=== PATIENT | female | born 1995 | race Two or more races ===

== ENCOUNTER 2020-10-23 11:20 | Emergency (ER) | payer OTHER, SELFPAY ==
[2020-10-23] VITALS (12 sets, daily range): BP systolic 105–111; BP diastolic 62–69; PULSE 60–78; RESP 13–19; TEMP 36.7; O2SAT 100
--- NOTE | ~2020-10-23 | XR_ITS ---
EXAMINATION: XR chest 2V DATE: 10/23/2020 12:14 INDICATION: Shortness of breath TECHNIQUE: Frontal and lateral views of the chest are obtained COMPARISON: None available FINDINGS: The lungs are free of acute opacities. There is no pleural effusion or pneumothorax. The ca rdiomediastinal silhouette is normal. The visualized bones and soft tissues are unremarkable. IMPRESSION: 1. No acute cardiopulmonary abnormality. Reviewed, dictated and finalized at location B.
--- NOTE | 2020-10-23 11:24 | ECG_ITS ---
Measurements Intervals [place] Rate: 68 P: 78 FL: 123 QRS: 86 QRSD: 92 T: 57 QT: 382 QTc: 408 Interpretive Statements SINUS RHYTHM WITH SINUS ARRHYTHMIA POSSIBLE LEFT ATRIAL ENLARGEMENT BORDERLINE ECG Electronically Signed On 10-23-2020 11:45:42 CDT by Milton Su D.O.
[2020-10-23 11:40] LABS: Basophils Percent Auto 0.3 % (0.2-1.2); Eosinophils Percent Auto 0.1 % (0-4.4); Hematocrit 34.7 % (37.0-47.0); Hemoglobin 11.7 g/dL (12.0-15.0); Immature Granulocyte Absolute 0.05 K/mm3 (0.00-0.031); Immature Granulocyte Percent A 0.5 % (0-0.5); Lymphocytes Absolute Auto 1.32 K/mm3 (0.9-3.2); Lymphocytes Percent Auto 12.3 % (18.3-44.2); Mean Corpuscular HGB Conc 33.7 g/dl (32-36); Mean Corpuscular Hemoglobin 29.8 pg (26-34); Mean Corpuscular Volume 88.3 fl (80-100); Mean Platelet Volume 9.3 fl (7.4-10.4); Monocytes Absolute Auto 0.3 K/mm3 (0.1-0.6); Monocytes Percent Auto 2.7 % (2.6-8.5); Neutrophils Percent Auto 84.1 % (45.5-73.1); Platelet Count Result 309 k/mm3 (150-375); Red Blood Count 3.93 M/mm3 (4.2-5.4); Red Cell Distribution Width 13.2 % (11.5-14.5); White Blood Count 10.7 K/mm3 (4.5-10.0)
[2020-10-23 11:49] LABS: Anion Gap 11 mmol/L (8-16); Blood Urea Nitrogen 6 mg/dL (7-17); Calcium 9.5 mg/dL (8.4-10.2); Carbon Dioxide 22 mmol/L (22-30); Chloride 101 mmol/L (98-107); Estimated CRCL calculation 130 ml/min; Estimated Glomerular Filt Rate > 60; Glucose 98 mg/dL (65-110); Potassium 3.7 mmol/L (3.4-5.0); Sodium 134 mmol/L (137-145)
--- NOTE | 2020-10-23 13:55 | ED.SOB ---
HPI - SOB/Dyspnea General Chief Complaint: Shortness of Breath/Dyspnea Stated Complaint: sob, 12 weeks Time Seen by Provider: 10/23/20 12:33 History of Present Illness HPI Narrative: Patient left without being seen by this provider. Related Data Home Medications Medication Instructions Recorded Confirmed PNV cmb#95-ferrous fumarate-FA 1 tablet PO DAILY 03/17/19 03/17/19 [] Allergies Allergy/AdvReac Type Severity Reaction Status Date / Time No Known Allergies Allergy Verified 03/17/19 13:41 PMFSH Family History Family History Mother Aorta aneurysm Hypoglycemia Social History Social History (Updated 03/25/19 @ 04:10 by Reinaldo Vickers, RN) Substance use: current Substance use type: marijuana Last use: 03/17/19 Spiritual care concerns: No Course Vital Signs Vital signs: Vital Signs Temperature 36.7 C 10/23/20 11:31 Pulse Rate 76 10/23/20 11:31 Respiratory Rate 18 10/23/20 11:31 Blood Pressure 105/69 10/23/20 11:31 Pulse Oximetry 100 10/23/20 11:31 Temperature 36.7 C 10/23/20 11:31 Pulse Rate 74 10/23/20 13:30 Respiratory Rate 17 10/23/20 13:30 Blood Pressure 110/62 10/23/20 12:00 Pulse Oximetry 100 10/23/20 12:45 MDM - SOB/Dyspnea Lab Data Result diagrams: 10/23/20 11:35 10/23/20 11:35 Labs: Lab Results 10/23/20 10/23/20 Range/Units 11:35 11:35 WBC 10.7 H (4.5-10.0) K/mm3 RBC 3.93 L (4.2-5.4) M/mm3 Hgb 11.7 L (12.0-15.0) g/dL Hct 34.7 L (37.0-47.0) % MCV 88.3 (80-100) fl MCH 29.8 (26-34) pg MCHC 33.7 (32-36) g/dl RDW 13.2 (11.5-14.5) % Plt Count 309 (150-375) k/mm3 MPV 9.3 (7.4-10.4) fl Immature Gran % (Auto) 0.5 (0-0.5) % Neut % (Auto) 84.1 H (45.5-73.1) % Lymph % (Auto) 12.3 L (18.3-44.2) % [place] % (Auto) 2.7 (2.6-8.5) % Eos % (Auto) 0.1 (0-4.4) % Baso % (Auto) 0.3 (0.2-1.2) % Lymph # (Auto) 1.32 (0.9-3.2) K/mm3 [place] # (Auto) 0.3 (0.1-0.6) K/mm3 Eos # (Auto) 0.0 (0-0.3) K/mm3 Baso # (Auto) 0.0 (0.0-0.1) K/mm3 Abs Immat Gran (auto) 0.05 H (0.00-0.031) K/mm3 Absolute Neuts (auto) 9.0 H (1.3-6.7) K/mm3 Absolute Nucleated RBC 0.0 (0.0-0.012) K/mm3 Nucleated RBC % 0.0 (0.0-0.2) % Sodium 134 L (137-145) mmol/L Potassium 3.7 (3.4-5.0) mmol/L Chloride 101 (98-107) mmol/L Carbon Dioxide 22 (22-30) mmol/L Anion Gap 11 (8-16) mmol/L BUN 6 L (7-17) mg/dL Creatinine 0.40 L (0.7-1.0) mg/dL Estim Creat Clear Calc 130 ml/min Estimated GFR > 60 (59 - ) Glucose 98 (65-110) mg/dL Calcium 9.5 (8.4-10.2) mg/dL Discharge Plan Discharge Patient Disposition: Left Without Being Sn Triaged Prescriptions: No Action PNV cmb#95-ferrous fumarate-FA [] 28 mg iron- 800 mcg Tablet 1 tablet PO DAILY RF: 0 Follow-up/Referrals: Antionette Tobias MD [Primary Care Provider] -
== END 2020-10-23 13:48 | disposition left against medical advice (07) ==
PROVIDERS: Emergency Medicine; Emergency Provider Nurse Practitioner; PCP Obstetrics & Gynecology
DX: Z53.21 Procedure and treatment not carried out due to patient leaving prior to being seen by health care provider (principal); R06.02 Shortness of breath
CPT/HCPCS: 36415; 71046; 80048; 85025; 93005; 99199

== ENCOUNTER 2021-02-09 09:51 | Outpatient (RCR) | payer OTHER, SELFPAY ==
[2021-02-09 11:24] LABS: Hematocrit 32.5 % (37.0-47.0); Hemoglobin 10.6 g/dL (12.0-15.0)
[2021-02-09 11:43] LABS: Glucose 1 Hour PP 50gm Dose 99 mg/dL
[2021-02-09 12:24] LABS: HIV 1/2 Ab P24 Ag Result Negative (Negative)
[2021-02-12 09:39] LABS: Rapid Plasma Reagin Non-Reactive (NonReactive)
[2021-02-12] MEDS: RHO(D) IMMUNE GLOBULIN 300 MCG/2 ML SYRINGE IM (15:28)
== END 2021-05-10 23:59 | disposition home or self-care (01) ==
LOC: ANHLAB 09:51
PROVIDERS: PCP Obstetrics & Gynecology; Visit Provider Obstetrics & Gynecology
DX: Z11.4 Encounter for screening for human immunodeficiency virus [HIV] (principal); Z29.13 Encounter for prophylactic Rho(D) immune globulin; O36.0130 Maternal care for anti-D [Rh] antibodies, third trimester, not applicable or unspecified; Z3A.00 Weeks of gestation of pregnancy not specified
CPT/HCPCS: 36415; 82947; 85014; 85018; 85461; 86592; 86703; 90384; 96372; G0432; J2790

== ENCOUNTER 2021-02-25 16:38 | Observation (INO) | payer OTHER, SELFPAY ==
[2021-02-25] VITALS (15 sets, daily range): BP systolic 98–126; BP diastolic 54–72; PULSE 78–107; TEMP 37.3; O2SAT 97–100; BMI 20.2
[2021-02-25] MEDS: ONDANSETRON INJ 4 MG/2 ML VIAL IV PUSH ×2 (17:00→22:40)
[2021-02-25] MEDS: DEXTROSE 5%/LACTATED RINGERS 1,000 ML 500 ML IV CONT ×2 (17:00→18:54)
[2021-02-25] MEDS: FAMOTIDINE 20 MG/2 ML VIAL IV PUSH (17:31)
[2021-02-25 17:38] LABS: Basophils Percent Auto 0.2 % (0.2-1.2); Hematocrit 31.8 % (37.0-47.0); Hemoglobin 10.8 g/dL (12.0-15.0); Immature Granulocyte Absolute 0.18 K/mm3 (0.00-0.031); Immature Granulocyte Percent A 1.1 % (0-0.5); Lymphocytes Absolute Auto 1.46 K/mm3 (0.9-3.2); Mean Corpuscular Volume 91.4 fl (80-100); Mean Platelet Volume 9.9 fl (7.4-10.4); Monocytes Absolute Auto 0.3 K/mm3 (0.1-0.6); Monocytes Percent Auto 1.8 % (2.6-8.5); Neutrophils Absolute Auto 14.3 K/mm3 (1.3-6.7); Neutrophils Percent Auto 87.9 % (45.5-73.1); Platelet Count Result 295 k/mm3 (150-375); Red Blood Count 3.48 M/mm3 (4.2-5.4); Red Cell Distribution Width 12.8 % (11.5-14.5); White Blood Count 16.3 K/mm3 (4.5-10.0)
[2021-02-25 17:50] LABS: Alanine Aminotransferase 15 U/L (4-35); Albumin Level 4.5 g/dL (3.5-5.1); Alkaline Phosphatase 111 U/L (38-126); Anion Gap 11 mmol/L (8-16); Aspartate Amino Transferase 22 U/L (14-36); Bilirubin,Total 0.4 mg/dL (0.2-1.3); Blood Urea Nitrogen 12 mg/dL (7-17); Calcium 9.4 mg/dL (8.4-10.2); Carbon Dioxide 21 mmol/L (22-30); Chloride 103 mmol/L (98-107); Estimated CRCL calculation 200 ml/min; Estimated Glomerular Filt Rate > 60; Glucose 115 mg/dL (65-110); Potassium 3.4 mmol/L (3.4-5.0); Sodium 135 mmol/L (137-145)
[2021-02-25 18:21] LABS: EDCOVIDSCREEN Negative (Negative)
[2021-02-25 19:23] LABS: Add Urine Microscopic? YES; Appearance Urine Cloudy (Clear); Bacteria Urine Trace /hpf; Bilirubin Urine Negative (Negative); Color Urine Yellow (Yellow); Glucose Urine UA 3+ mg/dL (Negative); Ketones Urine 2+ mg/dL (Negative); Leukocyte Esterase Ur Negative LEU/UL (Negative); Mucus Urine Few /lpf; Nitrate Urine Negative (Negative); Protein Urine 2+ mg/dL (Negative); Squamous Epithelial Cell Urine Many /hpf (Few); Urobilinogen Urine Negative mg/dL (<2.0)
[2021-02-25 19:24] LABS: Blood Urine Negative (Negative); Specific Grav Ur 1.035 (1.001-1.035)
[2021-02-25] MEDS: PROMETHAZINE HCL 25 MG/ML AMPUL (19:35)
--- NOTE | 2021-02-25 22:45 | PC.NURSE ---
pt states she feels much better and would like to go home. Called Dr. Tobias and okay to discharge with zofran Rx.
--- NOTE | 2021-03-15 21:17 | PM.OBTRLD ---
OB - Triage/Final Diagnosis Visit Information Comments/Additional reasons for admission: I have assessed the risk for this patient, Lauren Carlin, and determined that she would benefit from observation care. Evaluation Laboratory results: Laboratory Tests 02/25/21 02/25/21 02/25/21 17:27 17:27 17:57 WBC 16.3 H RBC 3.48 L Hgb 10.8 L Hct 31.8 L MCV 91.4 MCH 31.0 MCHC 34.0 RDW 12.8 Plt Count 295 MPV 9.9 Immature Gran % (Auto) 1.1 H Neut % (Auto) 87.9 H Lymph % (Auto) 9.0 L [place] % (Auto) 1.8 L Eos % (Auto) 0.0 Baso % (Auto) 0.2 Lymph # (Auto) 1.46 [place] # (Auto) 0.3 Eos # (Auto) 0.0 Baso # (Auto) 0.0 Abs Immat Gran (auto) 0.18 H Absolute Neuts (auto) 14.3 H Absolute Nucleated RBC 0.0 Nucleated RBC % 0.0 Sodium 135 L Potassium 3.4 Chloride 103 Carbon Dioxide 21 L Anion Gap 11 BUN 12 D Creatinine 0.30 L Estim Creat Clear Calc 200 Estimated GFR > 60 Glucose 115 H Calcium 9.4 Total Bilirubin 0.4 AST 22 ALT 15 Alkaline Phosphatase 111 Total Protein 8.0 Albumin 4.5 Urine Color Urine Appearance Urine pH Ur Specific [place] Urine Protein Urine Glucose (UA) Urine Ketones Ur Blood (Man) Urine Nitrate Urine Bilirubin Urine Urobilinogen Leukocyte Esterase Rfl Urine RBC Urine WBC Ur Squamous Epith Cells Urine Bacteria Urine Mucus SARS-CoV-2 IgG/IgM Ag?Rapid Negative 02/25/21 19:13 WBC RBC Hgb Hct MCV MCH MCHC RDW Plt Count MPV Immature Gran % (Auto) Neut % (Auto) Lymph % (Auto) [place] % (Auto) Eos % (Auto) Baso % (Auto) Lymph # (Auto) [place] # (Auto) Eos # (Auto) Baso # (Auto) Abs Immat Gran (auto) Absolute Neuts (auto) Absolute Nucleated RBC Nucleated RBC % Sodium Potassium Chloride Carbon Dioxide Anion Gap BUN Creatinine Estim Creat Clear Calc Estimated GFR Glucose Calcium Total Bilirubin AST ALT Alkaline Phosphatase Total Protein Albumin Urine Color Yellow Urine Appearance Cloudy H Urine pH 6.0 Ur Specific [place] 1.035 Urine Protein 2+ H Urine Glucose (UA) 3+ H Urine Ketones 2+ H Ur Blood (Man) Negative Urine Nitrate Negative Urine Bilirubin Negative Urine Urobilinogen Negative Leukocyte Esterase Rfl Negative Urine RBC 6-10 H Urine WBC 7-9 H Ur Squamous Epith Cells Many H Urine Bacteria Trace Urine Mucus Few H SARS-CoV-2 IgG/IgM Ag?Rapid Final Diagnosis (1) Nausea & vomiting: Code(s): R11.2 - Nausea with vomiting, unspecified Status: Acute (2) Abdominal pain affecting : Code(s): O26.899 - Other specified related conditions, unspecified trimester; R10.9 - Unspecified abdominal pain Status: Acute
== END 2021-02-25 23:00 | disposition home or self-care (01) ==
PROVIDERS: Admitting Provider Obstetrics & Gynecology; PCP Obstetrics & Gynecology; Visit Provider Obstetrics & Gynecology
DX: O21.2 Late vomiting of pregnancy (principal); O26.893 Other specified pregnancy related conditions, third trimester; R10.9 Unspecified abdominal pain; Z3A.30 30 weeks gestation of pregnancy
CPT/HCPCS: 36415; 80053; 81001; 85025; 87086; 87088; 87426; 96361; 96374; 96375; 96376; C9803; G0378; G0379; J2405; J2550; J7121

== ENCOUNTER 2021-02-27 06:37 | Observation (INO) | payer OTHER, SELFPAY ==
[2021-02-27] VITALS (14 sets, daily range): BP systolic 96; BP diastolic 54; PULSE 70–89; RESP 18; TEMP 36.7; O2SAT 98–100; BMI 20.2
--- NOTE | ~2021-02-27 | US_ITS ---
EXAMINATION: US abdomen limited EXAM DATE: 02/27/2021 09:22 INDICATION: Abd pain that radiates to back. TECHNIQUE: Multiple grayscale and Doppler images of the abdomen right upper quadrant were obtained (b y a technologist who performed the scan) and subsequently reviewed. Comparison is made to prior exami nation from 02/02/2019. FINDINGS: The pancreatic head and body are normal in appearance. The pancreatic tail is not visualized. The l iver has normal echogenicity and contour. There are no focal liver lesions identified. There is no evidence of intrahepatic biliary duct dilation. Portal venous flow was seen in the hepatopedal, nor mal direction and has normal Doppler waveform. No right-sided hydronephrosis. Common bile duct measures 4 mm, which is normal. The gallbladder wall is normal in thickness, with ex pected amount of distention. No sonographic evidence of pericholecystic fluid. There is no cholelit hiases. Technologist performing exam reports patient did not demonstrate sonographic Pollock's sign. Please note that this sign is less reliable in patients who have received pain medication. IMPRESSION: Unremarkable abdominal ultrasound exam. Reviewed, dictated and finalized at location A. EMENTATION ANALYST
--- NOTE | 2021-02-27 07:00 | OBADM ---
This patient, Lauren Carlin, admitted to the OB room OB Post 116 for observation. Patient/family oriented to hospital policies and general routines including ID bracelet, bed and alarms, visiting hours, pain management, procedures, bathroom and other care routines, personal items, smoking policy, room service/diet, and visiting hours. Patient/Family are encouraged to report perceived risks to care and to ask questions if they do not understand what they are told or what they should do.
[2021-02-27] MEDS: ONDANSETRON INJ 4 MG/2 ML VIAL IV PUSH (08:08)
--- NOTE | 2021-02-27 08:10 | PC.NURSE ---
Patient standing and rocking at bedside, requesting to get in shower while waiting for US.
[2021-02-27 08:22] LABS: Basophils Percent Auto 0.4 % (0.2-1.2); Eosinophils Absolute Auto 0.1 K/mm3 (0-0.3); Eosinophils Percent Auto 0.5 % (0-4.4); Hematocrit 28.4 % (37.0-47.0); Hemoglobin 9.7 g/dL (12.0-15.0); Immature Granulocyte Absolute 0.08 K/mm3 (0.00-0.031); Immature Granulocyte Percent A 0.7 % (0-0.5); Lymphocytes Absolute Auto 1.69 K/mm3 (0.9-3.2); Lymphocytes Percent Auto 15.6 % (18.3-44.2); Mean Corpuscular HGB Conc 34.2 g/dl (32-36); Mean Corpuscular Hemoglobin 31.2 pg (26-34); Mean Corpuscular Volume 91.3 fl (80-100); Mean Platelet Volume 9.6 fl (7.4-10.4); Monocytes Absolute Auto 0.4 K/mm3 (0.1-0.6); Monocytes Percent Auto 3.7 % (2.6-8.5); Neutrophils Absolute Auto 8.6 K/mm3 (1.3-6.7); Neutrophils Percent Auto 79.1 % (45.5-73.1); Platelet Count Result 243 k/mm3 (150-375); Red Blood Count 3.11 M/mm3 (4.2-5.4); Red Cell Distribution Width 12.7 % (11.5-14.5); White Blood Count 10.8 K/mm3 (4.5-10.0)
[2021-02-27] MEDS: fentaNYL CITRATE INJ (*CRX) 100 MCG/2 ML VIAL 50 MCG IV PUSH ×2 (08:45→13:41)
[2021-02-27 09:13] LABS: Alanine Aminotransferase 13 U/L (4-35); Albumin Level 3.7 g/dL (3.5-5.1); Alkaline Phosphatase 87 U/L (38-126); Amylase 59 U/L (30-110); Anion Gap 7 mmol/L (8-16); Aspartate Amino Transferase 21 U/L (14-36); Bilirubin,Total 0.2 mg/dL (0.2-1.3); Blood Urea Nitrogen 8 mg/dL (7-17); Calcium 9.1 mg/dL (8.4-10.2); Carbon Dioxide 23 mmol/L (22-30); Chloride 103 mmol/L (98-107); Estimated CRCL calculation 200 ml/min; Estimated Glomerular Filt Rate > 60; Glucose 88 mg/dL (65-110); Lipase 53 U/L (23-300); Potassium 3.4 mmol/L (3.4-5.0); Sodium 133 mmol/L (137-145); Uric Acid 2.2 mg/dL (2.5-7.5)
--- NOTE | 2021-02-27 10:09 | PC.NURSE ---
Dr Tobias informed of lab results and US report. Orders received.
[2021-02-27] MEDS: PROMETHAZINE HCL 25 MG/ML AMPUL 12.5 MG IV PUSH (10:25)
[2021-02-27] MEDS: fentaNYL CITRATE INJ (*CRX) 100 MCG/2 ML VIAL IV PUSH (10:25)
[2021-02-27 10:55] LABS: Amphetamine Screen Urine Negative (Negative); Barbiturate Screen Urine Negative (Negative); Benzodiazepines Screen Urine Negative (Negative); Cannabinoid Screen Urine Positive (Negative); Cocaine Screen Urine Negative (Negative); Methadone Screen Urine Negative (Negative); Opiate Screen Urine Negative (Negative); Phencyclidine Screen Urine Negative (Negative)
--- NOTE | 2021-02-27 11:54 | PC.NURSE ---
Patient states that her pain and nausea are gone. Patient has been sleeping off and on for the last half hour.
[2021-02-27] MEDS: FAMOTIDINE 20 MG/2 ML VIAL IV PUSH (13:41)
--- NOTE | 2021-02-27 15:28 | PC.NURSE ---
Discussed UDS with patient, also discussed her nausea and her marijuana use. Patient states that she uses at least a bowl a day.
--- NOTE | 2021-02-27 15:40 | PC.NURSE ---
Dr Tobias notified of patient wishing to leave. Dr Tobias also informed of MJ usage and frequency. Patient educated on MJ use.
--- NOTE | 2021-02-27 15:49 | PM.IMHP ---
H&P: HPI History of Present Illness Date/Time: 02/27/21 15:49 this patient is a 25-year-old multiparous female 30 weeks gestation who presents with epigastric pain and nausea vomiting. Patient has intractable vomiting and nausea. She has some epigastric pain that radiates to her back. She have no vaginal bleeding. She reports good movement. She denies any contractions. She denies any chest pain or shortness of breath. She denies any nausea, vomiting, fever, chills. Chief Complaint: nausea and vomitting Review of Systems Review of Systems: All systems reviewed & are unremarkable except as noted in HPI and below Constitutional: Constitutional: Denies chills, Denies fatigue, Denies fever(s) and Denies weakness Eyes: Eyes: Denies blurry vision, Denies change in vision, Denies loss of peripheral vision, Denies loss of vision, Denies other visual disturbances and Denies eye pain ENT: Denies vertigo, Denies dizziness, Denies hearing loss, Denies mouth pain, Denies nasal obstruction, Denies neck mass and Denies neck pain Cardiovascular: Cardiovascular: Denies chest pain, Denies diaphoresis, Denies syncope, Denies leg edema and Denies dyspnea Respiratory: Respiratory: Denies chest congestion, Denies cough, Denies hemoptysis, Denies dyspnea and Denies wheezing Gastrointestinal: Gastrointestinal: Denies abdominal pain, Denies constipation, Denies diarrhea, Denies nausea and Denies vomiting Genitourinary: Genitourinary: Denies hematuria, Denies change in libido, Denies nocturia, Denies genital lesions, Denies flank pain and Denies urinary urgency Musculoskeletal: Musculoskeletal: Denies abnormal gait, Denies back pain, Denies myalgias, Denies arthralgias, Denies joint swelling, Denies muscle weakness and Denies neck pain Integumentary/Breasts: Skin/Breast: Denies swelling, Denies breast pain, Denies breast mass, Denies dry skin, Denies nipple discharge, Denies unusual bruising and Denies jaundice Neurologic: Denies Neuro-related abnormal movements, Denies Abnormal speech present, Denies abnormal gait, Denies behavioral changes, Denies confusion, Denies vertigo, Denies dizziness, Denies syncope, Denies loss of vision, Denies memory loss, Denies convulsions and Denies weakness Psychiatric: Psychiatric: Denies abnormal sleep pattern, Denies behavioral changes, Denies change in libido, Denies confusion, Denies depression, Denies anhedonia and Denies memory loss Endocrine: Endocrine: Reports no additional endocrine complaints, Denies change in libido and Denies fatigue Hematologic/Lymphatic: Hematologic/Lymphatic: Reports no additional hematologic/lymphatic complaints Allergic/Immunologic: Allergic/Immunologic: Reports no additional allergic/immunologic complaints and Denies wheezing PMFSH Family History Family History Mother Aorta aneurysm Hypoglycemia Social History Social History (Updated 03/25/19 @ 04:10 by Reinaldo Vickers, RN) Substance use: current Substance use type: marijuana Last use: 03/17/19 Spiritual care concerns: No Meds Home Medications and Allergies Home Medications Medication Instructions Recorded Confirmed Type PNV cmb#95-ferrous fumarate-FA 1 tablet PO DAILY 03/17/19 02/25/21 History [] ondansetron 4 mg PO Q6H PRN #30 tablet 02/25/21 Rx Allergies Allergy/AdvReac Type Severity Reaction Status Date / Time No Known Allergies Allergy Verified 03/17/19 13:41 Vital Signs Vital Signs - 24 hr 02/27/21 06:49 02/27/21 06:51 02/27/21 06:54 Pulse Rate 85 Blood Pressure 96/54 L Pulse Oximetry 99 98 02/27/21 06:59 02/27/21 07:04 02/27/21 07:09 Pulse Rate Blood Pressure Pulse Oximetry 100 99 99 02/27/21 07:14 02/27/21 07:19 02/27/21 07:24 Pulse Rate Blood Pressure Pulse Oximetry 100 99 99 02/27/21 07:29 02/27/21 07:34 02/27/21 07:39 Pulse Rate Blood Pressure Pulse Oximetry 98 98
== END 2021-02-27 15:45 | disposition home or self-care (01) ==
PROVIDERS: Advanced Practice Midwife; Admitting Provider Obstetrics & Gynecology; Visit Provider Obstetrics & Gynecology
DX: O21.2 Late vomiting of pregnancy (principal); Z3A.30 30 weeks gestation of pregnancy
CPT/HCPCS: 36415; 76705; 80053; 80307; 82150; 83690; 84550; 85025; 96374; 96375; 96376; G0378; G0379; J2405; J2550; J3010

== ENCOUNTER 2021-04-22 08:33 | Outpatient (CLI) | payer OTHER, SELFPAY ==
[2021-04-22 09:14] VITALS: BP 113/61; PULSE 101
== END 2021-04-22 08:34 | disposition home or self-care (01) ==
LOC: ANHOBOP 08:36
PROVIDERS: Visit Provider Obstetrics & Gynecology
DX: O36.8910 Maternal care for other specified fetal problems, first trimester, not applicable or unspecified (principal); Z3A.00 Weeks of gestation of pregnancy not specified
CPT/HCPCS: 59025

== ENCOUNTER 2021-04-28 05:55 | Inpatient (IN) | payer OTHER, SELFPAY ==
[2021-04-28] VITALS (88 sets, daily range): BP systolic 90–150; BP diastolic 38–108; PULSE 55–103; RESP 16; TEMP 36.3–37.3; O2SAT 87–100; BMI 20.8
[2021-04-28 06:34] LABS: Basophils Absolute Auto 0.1 K/mm3 (0.0-0.1); Basophils Percent Auto 0.5 % (0.2-1.2); Eosinophils Absolute Auto 0.2 K/mm3 (0-0.3); Eosinophils Percent Auto 1.8 % (0-4.4); Hematocrit 30.3 % (37.0-47.0); Immature Granulocyte Absolute 0.06 K/mm3 (0.00-0.031); Immature Granulocyte Percent A 0.6 % (0-0.5); Lymphocytes Absolute Auto 2.38 K/mm3 (0.9-3.2); Lymphocytes Percent Auto 24.2 % (18.3-44.2); Mean Corpuscular Hemoglobin 30.2 pg (26-34); Mean Corpuscular Volume 91.5 fl (80-100); Mean Platelet Volume 9.7 fl (7.4-10.4); Monocytes Absolute Auto 0.4 K/mm3 (0.1-0.6); Monocytes Percent Auto 4.2 % (2.6-8.5); Neutrophils Absolute Auto 6.8 K/mm3 (1.3-6.7); Neutrophils Percent Auto 68.7 % (45.5-73.1); Platelet Count Result 335 k/mm3 (150-375); Red Blood Count 3.31 M/mm3 (4.2-5.4); Red Cell Distribution Width 14.1 % (11.5-14.5); White Blood Count 9.8 K/mm3 (4.5-10.0)
[2021-04-28] MEDS: LACTATED RINGERS 1,000 ML 125 ML IV CONT (06:40)
[2021-04-28] MEDS: OXYTOCIN 30 UNITS/NS 500 ML 30 UNITS/500 ML BAG IV CONT (06:41)
--- NOTE | 2021-04-28 06:55 | P.PNAN_ITS ---
Anes - Eval Pre Procedure Procedure: labor epidural Date/Time: 04/28/21 06:55 Surgeon: danelle Preop Diagnosis: pain during labor Pre Op Diagnosis: IOL Patient Data Age: 25 Gender: F Height: Weight: Last Vital Signs Temp 37.3 C 04/28/21 06:40 Pulse 103 H 04/28/21 06:45 BP 107/61 04/28/21 06:45 Allergies Allergy/AdvReac Type Severity Reaction Status Date / Time No Known Allergies Allergy Verified 03/17/19 13:41 Home Medications Medication Instructions Recorded Confirmed Type PNV cmb#95-ferrous fumarate-FA 1 tablet PO DAILY 03/17/19 04/28/21 History [] ondansetron 4 mg PO Q6H PRN #30 tablet 02/25/21 04/28/21 Rx Laboratory Tests 04/28/21 04/28/21 06:23 06:23 WBC 9.8 K/mm3 K/mm3 (4.5-10.0) RBC 3.31 M/mm3 L M/mm3 (4.2-5.4) Hgb 10.0 g/dL L g/dL (12.0-15.0) Hct 30.3 % L % (37.0-47.0) MCV 91.5 fl fl (80-100) MCH 30.2 pg pg (26-34) MCHC 33.0 g/dl g/dl (32-36) RDW 14.1 % % (11.5-14.5) Plt Count 335 k/mm3 k/mm3 (150-375) MPV 9.7 fl fl (7.4-10.4) Immature Gran % (Auto) 0.6 % H % (0-0.5) Neut % (Auto) 68.7 % % (45.5-73.1) Lymph % (Auto) 24.2 % % (18.3-44.2) [place] % (Auto) 4.2 % % (2.6-8.5) Eos % (Auto) 1.8 % % (0-4.4) Baso % (Auto) 0.5 % % (0.2-1.2) Lymph # (Auto) 2.38 K/mm3 K/mm3 (0.9-3.2) [place] # (Auto) 0.4 K/mm3 K/mm3 (0.1-0.6) Eos # (Auto) 0.2 K/mm3 K/mm3 (0-0.3) Baso # (Auto) 0.1 K/mm3 K/mm3 (0.0-0.1) Abs Immat Gran (auto) 0.06 K/mm3 H K/mm3 (0.00-0.031) Absolute Neuts (auto) 6.8 K/mm3 H K/mm3 (1.3-6.7) Absolute Nucleated RBC 0.0 K/mm3 K/mm3 (0.0-0.012) Nucleated RBC % 0.0 % % (0.0-0.2) RPR Pending Patient hx anesthesia problems: none Family hx anesthesia problems: none Results Review: All pre-operative results and documents have been reviewed as part of the pre-operative evaluation. [facility] Past Medical History Medical History (Updated 04/28/21 @ 06:56 by Brii Norwood CRNA) Intrauterine Family History Family History Mother Aorta aneurysm Hypoglycemia Social History Social History (Updated 03/25/19 @ 04:10 by Reinaldo Vickers RN) Substance use: current Substance use type: marijuana Last use: LAST TIME -2MONTHS AGO-02/25 Spiritual care concerns: No Exam Day of Procedure 04/28/21 06:55
--- NOTE | 2021-04-28 07:17 | LDADM ---
This patient, Lauren Carlin, was admitted to Labor/Delivery/Recovery 106 on 04/28/21 at 05:55. Plans for labor, pain management and were discussed with patient. Patient/family oriented to hospital policies and general routines including ID bracelet, bed and alarms, visiting hours, pain management, procedures, bathroom and other care routines, personal items, smoking policy, room service/diet and guest tray routines, security routines, and visiting hours. Patient/Family are encouraged to report perceived risks to care and to ask questions if they do not understand what they are told or what they should do. See OBIX for further documentation.
[2021-04-28 07:30] LABS: Amphetamine Screen Urine Negative (Negative); Barbiturate Screen Urine Negative (Negative); Benzodiazepines Screen Urine Negative (Negative); Cannabinoid Screen Urine Positive (Negative); Cocaine Screen Urine Negative (Negative); Methadone Screen Urine Negative (Negative); Opiate Screen Urine Negative (Negative); Phencyclidine Screen Urine Negative (Negative)
--- NOTE | 2021-04-28 07:57 | WPDOBADMIT ---
Obstetrics - Admit Note Admission Note: record reviewed. No pertinent additions to the history and/or any subsequent changes in the physical findings that are not consistent with the expected course of the were found. elective induction of labor, SVE /-2 AROM moderate amount of meconium stained fluid, anticipate vaginal delivery Additions to the history and/or subsequent changes in the physical findings follow. None.
[2021-04-28] MEDS: ONDANSETRON INJ 4 MG/2 ML VIAL IV PUSH (09:10)
[2021-04-28] MEDS: fentaNYL CITRATE INJ (*CRX) 100 MCG/2 ML VIAL IV PUSH ×4 (09:11→12:22)
[2021-04-28] MEDS: LACTATED RINGERS 1,000 ML 999 ML IV CONT ×2 (11:55→12:55)
--- NOTE | 2021-04-28 15:26 | PM.OBPRVD ---
OB - Delivery Note Procedure Delivery date: 04/28/21 Procedure: vaginal delivery events: Meconium Stained Fluid Induction method: AROM and per pitocin protocol Delivery monitor: external FHT and external uterine Route of delivery: Laceration Description: None Specimen: Yes Quantitative Blood Loss (ml): 110 Anesthesia type: Epidural Disposition: floor [place] Baby Date of : 04/28/21 Time of : 15:11 Weeks of gestation at delivery: 39 Infant gender: Female Weight (pounds): 5 Weight (ounces): 13 presentation: vertex position: Left Occiput Anterior Placenta delivery description: Spontaneous cord vessel description: 3 Vessels and Delayed Cord Clamping score one minute: 8 score five minutes: 9 Narrative: mother and baby skin to skin in stable condition
[2021-04-28] MEDS: OXYTOCIN 30 UNITS/NS 500 ML 30 UNITS/500 ML BAG 125 UNITS IV CONT (15:49)
[2021-04-28] MEDS: IBUPROFEN 600 MG TABLET (17:15)
--- NOTE | 2021-04-28 17:59 | PC.NURSE ---
Patient transferred to post room #287 per wheelchair from labor and delivery. Support person present. Oriented to unit, room, information board, rooming in, admission packet and security measures. Patient verbalizes understanding.
[2021-04-29] MEDS: IBUPROFEN 600 MG TABLET PO ×2 (02:17→08:10)
[2021-04-29 04:50] VITALS: BP 110/69; PULSE 76; RESP 16; TEMP 36.3; O2SAT 99
[2021-04-29] MEDS: ACETAMINOPHEN 325 MG TABLET 650 MG PO ×2 (04:51→13:49)
[2021-04-29 05:39] LABS: Hematocrit 26.3 % (37.0-47.0); Hemoglobin 8.8 g/dL (12.0-15.0)
[2021-04-29] MEDS: ONDANSETRON INJ 4 MG/2 ML VIAL IV PUSH ×2 (08:10→13:49)
[2021-04-29 08:15] VITALS: BP 99/59; PULSE 81; RESP 18; TEMP 36.2
--- NOTE | 2021-04-29 11:03 | PM.OBPNVD ---
OB - PN: Subj Subjective Date/time seen: 04/29/21 11:03 Patient comments: no complaints and pain well controlled baby status: doing well OB - PN: Obj Data Labs CBC & Chem 7: 04/29/21 04:59 Labs: Laboratory Results - last 24 hr 04/29/21 04:59 Hgb 8.8 L Hct 26.3 L OB - PN A/P Plan day: 1 Plan: routine care and discharge home Time Spent With Patient Time: Total time spent is greater than 50% in coordination of care (as documented) at patient's floor/unit and/or counseling patient: Review of Systems Review of Systems: All systems reviewed & are unremarkable except as noted in HPI and below Exam Const: General: cooperative, healthy appearing and comfortable
--- NOTE | 2021-04-29 11:11 | PM.OBDSVD ---
DS: Admitting Diagnosis Discharge Date 04/29/21 Admitting Diagnosis IOL OB - DS: Summary OB Procedures : None OB Procedures Intrapartum: Spontaneous Vag Delivery OB Procedures: : None Time Spent with Patient Time attestation: Total time spent providing and/or coordinating discharge services: DS: Data Data Completed and Pending Labs on day of discharge: Labs from last 24 hours 04/29/21 04:59 Hgb 8.8 L Hct 26.3 L Discharge Plan Discharge Attending physician on discharge: Antionette Tobias Discharging Clinician: Suellen Gibbs Patient Disposition: Home, Self-Care Activity: pelvic rest Diet: regular Patient Instructions: Antibiotic Form Stand Alone Forms: General Discharge Information Follow-up/Referrals: Suellen Gibbs, JAMIM [Certified Nurse Tester [place] [employer]] - Discharge Medications: New ibuprofen 600 mg Tablet 600 mg PO Q6H PRN (Reason: Cramping) Qty: 30 RF: 0 polysaccharide iron complex 150 mg iron Capsule 150 mg PO BIDWM Qty: 60 RF: 0 Continued PNV cmb#95-ferrous fumarate-FA [] 28 mg iron- 800 mcg Tablet 1 tablet PO DAILY RF: 0 ondansetron 4 mg tablet,disintegrating 4 mg PO Q6H PRN (Reason: Nausea) Qty: 30 RF: 0 Date of admission: 04/28/21 05:55 Primary Care Provider: PHYSICIAN,TRAUMA DOCTOR Admitting Provider: Antionette Tobias Attending physician on admission: Antionette Tobias Condition: Stable
--- NOTE | 2021-04-29 11:13 | PM.OBDSVD ---
DS: Admitting Diagnosis Discharge Date 04/29/21 Admitting Diagnosis iol OB - DS: Summary OB Procedures : None OB Procedures Intrapartum: Spontaneous Vag Delivery OB Procedures: : None Time Spent with Patient Time attestation: Total time spent providing and/or coordinating discharge services: DS: Data Data Completed and Pending Labs on day of discharge: Labs from last 24 hours 04/29/21 04:59 Hgb 8.8 L Hct 26.3 L Discharge Plan Discharge Attending physician on discharge: Antionette Tobias Discharging Clinician: Suellen Gibbs Patient Disposition: Home, Self-Care Activity: pelvic rest Diet: regular Patient Instructions: Antibiotic Form Stand Alone Forms: General Discharge Information Follow-up/Referrals: Suellen Gibbs, JAMIM [Certified Nurse Fishing Vessel Mate] - Discharge Medications: New ibuprofen 600 mg Tablet 600 mg PO Q6H PRN (Reason: Cramping) Qty: 30 RF: 0 polysaccharide iron complex 150 mg iron Capsule 150 mg PO BIDWM Qty: 60 RF: 0 Continued PNV cmb#95-ferrous fumarate-FA [] 28 mg iron- 800 mcg Tablet 1 tablet PO DAILY RF: 0 ondansetron 4 mg tablet,disintegrating 4 mg PO Q6H PRN (Reason: Nausea) Qty: 30 RF: 0 Date of admission: 04/28/21 05:55 Primary Care Provider: PHYSICIAN,CERTIFIED DRUG COUNSELOR Admitting Provider: Antionette Tobias Attending physician on admission: Antionette Tobias Condition: Stable
[2021-04-29 12:50] VITALS: BP 93/48; PULSE 97; RESP 18; TEMP 36.8
[2021-04-29] MEDS: TETANUS,DIPHTHERIA,AC PERTUSSIS ADULT (0.5 ML) BOOSTRIX IM (12:57)
--- NOTE | 2021-04-29 14:41 | WPDANLDPN2 ---
Anes-Prog Note L&D Date/Time: 04/29/21 14:41 Comfortable throughout: labor and delivery Neuraxial method: epidural Epidural/Spinal procedure site: clean & non-tender Neuro status: Neuro function grossly intact. Cardiovascular status: normal Respiratory status: normal Airway patency: baseline Mental status: baseline Post-Op hydration status: normal Vital Signs: Last Vital Signs Temp 98.2 F 04/29/21 12:50 Pulse 97 04/29/21 12:50 Resp 18 04/29/21 12:50 BP 93/48 L 04/29/21 12:50 Pulse Ox 99 04/29/21 04:50 Pain score (VAS): 0 I/O: Intake & Output 04/28/21 04/29/21 04/29/21 23:59 07:59 15:59 Output Total 1010 Balance -1010 Post-procedural complaints: none Patient feedback: Patient satisfied with anesthetic care.
[2021-04-29] MEDS: RHO(D) IMMUNE GLOBULIN 300 MCG/2 ML SYRINGE IM (15:07)
[2021-04-30 10:55] LABS: Rapid Plasma Reagin Non-Reactive (NonReactive)
[2021-04-30 11:54] VITALS: BP 92/51; PULSE 81; RESP 16; TEMP 37.1; O2SAT 100
== END 2021-04-29 17:52 | disposition home or self-care (01) | DRG 560 ==
LOC: ANHLDR 05:58 → ANHOB2 18:03
PROVIDERS: Advanced Practice Midwife; Admitting Provider Obstetrics & Gynecology; Visit Provider Obstetrics & Gynecology
DX: O77.0 Labor and delivery complicated by meconium in amniotic fluid (principal); O69.81X0 Labor and delivery complicated by cord around neck, without compression, not applicable or unspecified; Z3A.39 39 weeks gestation of pregnancy; Z37.0 Single live birth
CPT/HCPCS: 36415; 80307; 85014; 85018; 85025; 85461; 86592; 86850; 86900; 86901; 88307; 90384; 90715; A9270; J2405; J2590; J2790; J2795; J3010; J7120

== ENCOUNTER 2024-09-30 16:35 | Emergency (ER) | payer MEDICAID, SELFPAY ==
--- NOTE | ~2024-09-30 | XR_ITS ---
HISTORY: pain, fall COMPARISON: None TECHNIQUE: 4 views of the left knee were performed FINDINGS: No acute or subacute fracture. Medial tibiofemoral joint space narrowing is identified. No suprapatellar joint effusion is identified. The infrapatellar joint space is clear. 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 Reviewed, dictated and finalized at location A.
[2024-09-30 16:45] VITALS: BP 101/64; PULSE 80; RESP 20; TEMP 37.2; O2SAT 100
--- NOTE | 2024-09-30 17:54 | ED_ITS ---
HPI - Fall General Chief Complaint: Fall Stated Complaint: FALL Source: patient Mode of arrival: ambulatory Limitations: no limitations History of Present Illness HPI Narrative: 29-year-old female presented for complaint of left knee pain. States 5 days ago she tripped and landed on the left knee. She took ibuprofen and the pain was improved. However today she took a long walk, and after sitting for while she felt the knee was stiff. Pain is worse to the inner aspect of the knee. She denies significant swelling, numbness, tingling, or weakness. Has not taken any additional medicine for pain after the first day. Related Data Home Medications ?Medication ?Instructions ?Recorded ?Confirmed ?Last Taken ?Type vit no.95-ferrous 1 tablet PO DAILY 03/17/19 04/28/21 04/27/21 History fumarate 28 mg-folic acid 800 mcg tablet () sertraline 50 mg tablet mg 09/30/24 Unknown History Allergies Allergy/AdvReac Type Severity Reaction Status Date / Time No Known Allergies Allergy Verified 09/30/24 17:09 Review of Systems Review of Systems: CONSTITUTIONAL: Denies body aches, fever, chills EYES: Denies visual changes ENT: Denies rhinorrhea, congestion CARDIOVASCULAR: Denies chest pain, palpitations, or edema. RESPIRATORY: Denies cough or dyspnea. SKIN: Denies rash, itching, or wounds. MUSCULOSKELETAL: reports left knee pain NEUROLOGIC: Denies headache, numbness, tingling, or weakness. All systems reviewed & are unremarkable except as noted in HPI and below PMFSH Past Medical History Medical History (Updated 09/30/24 @ 18:14 by Peggy Zazueta APRN) Intrauterine Family History Family History Mother Aorta aneurysm Hypoglycemia Social History Social History (Updated 03/25/19 @ 04:10 by Reinaldo Vickers RN) Smoking status: Never smoker Second hand tobacco smoke exposure: No Substance use: current Substance use type: marijuana Last use: LAST TIME -2MONTHS AGO-02/25 Spiritual care concerns: No Comments At time of signature, I have reviewed and agree with nursing past medical, surgical, social and family history unless otherwise noted. Please see nursing chart for further information. There is no relevant family history pertinent to the presenting complaint Exam Narrative: GENERAL: Well-appearing CHEST: Speaks in full sentences. No respiratory distress. HEART: Regular rate and rhythm. Normal and equal peripheral pulses. EXTREMITIES: Patient is able to bear weight and ambulate without pain to the knee. No bruising, erythema or warmth to the left knee. No obvious asymmetry or deformity when compared to the other knee. Patient is able to tolerate full flexion, extension, internal rotation; endorses medial knee pain with external rotation and with palpation. No tenderness to palpation of the patella, no effusion or ballottement. No tenderness over the infrapatellar tendon. No tenderness over the proximal fibular head. No quadriceps tenderness. Distal motor and neurovascular status intact. Capillary refill less than 3 seconds. SKIN: Warm, dry NEURO: Alert and oriented x3. PSYCH: Normal mood and affect Course Course Emergency Course: Patient is aware of diagnosis, understands and agrees to treatment plan. Anticipatory guidance given. Patient agrees to follow-up as directed and is aware of reasons to seek care at the emergency department. Portions of this record may have been created with voice recognition software Level of Care: Express Care Visit Vital Signs Vital signs: Vital Signs Temperature 98.9 F 09/30/24 16:45 Pulse Rate 80 09/30/24 16:45 Respiratory Rate 20 09/30/24 16:45 Blood Pressure 101/64 09/30/24 16:45 Pulse Oximetry 100 09/30/24 16:45 Oxygen Delivery Room Air 09/30/24 16:45 Temperature 98.9 F 09/30/24 16:45 Pulse Rate 80 09/30/24 16:45 Respiratory Rate 20 09/30/24 16:45 Blood Pressure 101/64 09/30/24 16:45 Pulse Oximetry 100 09/30/24 16:45 Oxygen Delivery Room Air 09/30/24 16:45 Reviewed MDM - Fall MDM Narrative Medical decision making narrative: Discussed physical exam findings and xray. CINTHIA applied. Advised supportive measures and signs/symptoms to go to the ER. Pt is appropriate for outpt treatment and f/u. Differential Diagnosis Differential diagnosis: Likely other (osteoarthritis, patella dislocation, patellar tendonitis, tendon rupture, gout, bakers cyst, septic bursitis, dvt, tibial plateau fracture) Imaging Data Radiologist's impression: Patient: Lauren Carlin : 1995 MR#: [id number] Age: 29 Acct:[id number] Loc: [facility] ADM Date: 09/30/24Attending Dr: HISTORY: pain, fall COMPARISON: None TECHNIQUE: 4 views of the left knee were performed FINDINGS: No acute or subacute fracture. Medial tibiofemoral joint space narrowing is identified. No suprapatellar joint effusion is identified. The infrapatellar joint space is clear. 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 Discharge Plan Discharge Clinical Impression: Acute knee pain Patient Disposition: Home Condition: Stable Instructions: Knee Pain (ED) Additional Instructions: Rest and elevate the left leg; bear weight as tolerated Apply ice 15-20 minute intervals several times a day Keep it wrapped with CINTHIA or use a soft knee splint Motrin 600mg every 8 hours, alternate with Tylenol 1000mg every 8 hours as needed Follow up with your primary care provider as needed Go to the ER for any worsening symptoms or concerns Patient Language: Tajik Prescriptions: No Action sertraline 50 mg tablet PNV cmb#95-ferrous fumarate-FA [] 28 mg iron- 800 mcg Tablet 1 tablet PO DAILY ondansetron 4 mg tablet,disintegrating 4 mg PO Q6H PRN (Reason: Nausea) Qty: 30 0RF polysaccharide iron complex 150 mg iron Capsule 150 mg PO BIDWM Qty: 60 0RF ibuprofen 600 mg Tablet 600 mg PO Q6H PRN (Reason: Cramping) Qty: 30 0RF Follow-up/Referrals: PHYSICIAN,ELECTRIC TRUCK OPERATOR [Primary Care Provider] - Rasheed Lugo MD [Physician] - Time of Disposition: 18:15
== END 2024-09-30 18:16 | disposition home or self-care (01) ==
PROVIDERS: Emergency Provider Nurse Practitioner Family
DX: M25.562 Pain in left knee (principal)
CPT/HCPCS: 73564; 99213; G0463